=== PATIENT | male | born 1965 | race Caucasian/White ===

== ENCOUNTER 2017-02-27 14:41 | Emergency (ER) | payer MEDICAID, OTHER ==
--- NOTE | 2017-02-27 15:01 | Emergency Department Record ---
History of Present Illness - General Chief complaint: Extremity Problem Stated complaint: L FOOT SWOLLEN Time Seen by Provider: 02/27/17 14:51 Source: Patient Mode of Arrival: Ambulatory Limitations: No limitations - History of Present Illness Initial comments: 51 yo male presents to ED with a CC of left foot pain and swelling to the MCP joint of the great toe. Patient denies fevers, chills, or recent injury, reports that when he went to bed last night the foot was fine. Patient reports pain with walking and pressure to the MCP joint. Patient reports history of HTN , and is seen at [facility] in [place]. MD Complaint: Joint pain Onset/Timin -: Days(s) Location: Left, Foot History of Same: No Severity scale (1-10): 8 Quality: Sharp, Stabbing Consistency: Constant Improves with: Other Worsens with: Palpation, Walking, Weight bearing Associated Symptoms: Denies other symptoms - Related Data Home Medications Medication Instructions Recorded Confirmed Last Taken Guaifenesin/Codeine Phosphate 15 ml PO BID PRN 11/22/15 02/27/17 02/27/17 [Guaifenesin AC Cough Syrup] Hydrochlorothiazide [Hctz 25Mg] 25 mg PO DAILY 11/22/15 02/27/17 02/27/17 Lisinopril 20 mg PO DAILY 11/22/15 02/27/17 02/27/17 Omeprazole [Prilosec] 20 mg PO DAILY 11/22/15 02/27/17 02/27/17 Previous Rx's Medication Instructions Recorded Hydrocodone/Acetaminophen [Nulato 1 tab PO Q6H PRN #15 tab 02/27/17 5mg/325mg] Indomethacin [Indocin] 50 mg PO TID #15 cap 02/27/17 Allergies Allergy/AdvReac Type Severity Reaction Status Date / Time No Known Drug Allergies Allergy Verified 02/27/17 14:44 Travel Screening - Travel/Exposure Within Last 30 Days Have you traveled within the last 30 days?: No - Travel/Exposure Within Last Year Have you traveled outside the [place] in the last year?: No - Additonal Travel Details Have you been exposed to anyone with a communicable illness?: No - Travel Symptoms Symptom Screening: None Review of Systems Constitutional: Denies: Chills, Fever, Malaise, Night sweats Eyes: Denies: Eye discharge, Eye pain ENT: Denies: Congestion, Ear pain Respiratory: Denies: Cough, Dyspnea Cardiovascular: Denies: Chest pain, Dyspnea on exertion Endocrine: Denies: Fatigue, Heat or cold intolerance Gastrointestinal: Denies: Abdominal pain, Nausea, Vomiting Genitourinary: Denies: Incontinence, Retention Musculoskeletal: Reports: Arthralgia, Gout (?), Joint swelling. Denies: Back pain Skin: Denies: Bruising, Change in color Neurological: Denies: Abnormal gait, Confusion, Headache, Seizure Psychiatric: Denies: Anxiety Hematological/Lymphatic: Denies: Anemia, Blood Clots Past Medical History - SOCIAL HISTORY Smoking Status: Never smoker Alcohol Use: None Drug Use Detail:: Marijuana - RESPIRATORY Hx Respiratory Disorders: Yes Hx COPD: Yes - CARDIOVASCULAR Hx Cardio Disorders: Yes Hx Hypertension: Yes - NEURO Hx Neuro Disorders: No - GI Hx GI Disorders: Yes Hx Diverticulitis: Yes Hx Hiatal Hernia: Yes - Hx Genitourinary Disorders: Yes Hx Kidney Stones: Yes - ENDOCRINE Hx Endocrine Disorders: No - MUSCULOSKELETAL Hx Musculoskeletal Disorders: Yes Hx Arthritis: Yes - PSYCH Hx Psych Problems: Yes Hx Anxiety: Yes Hx Depression: Yes - HEMATOLOGY/ONCOLOGY Hx Hematology/Oncology Disorders: No Family Medical History Any Significant Family History?: Yes Hx Anxiety: Brother/Sister Hx Cancer: Father Hx Dementia: Grandparents Hx Depression: Mother, Brother/Sister Hx Heart Disease: Grandparents Hx Seizures: Brother/Sister Physical Exam - General General Appearance: Alert, Oriented x3, Cooperative, Mild distress Limitations: No limitations - Head Head exam: Atraumatic, Normocephalic, Normal inspection Head exam detail: negative: Abrasion, Contusion, Lowe's sign, General tenderness, Hematoma, Laceration - Eye Eye exam: Normal appearance. negative: Conjunctival injection, Periorbital swelling, Periorbital tenderness, Scleral icterus - ENT Ear exam: negative: Auricular hematoma, Auricular trauma Nasal Exam: negative: Active bleeding, Discharge, Dried blood, Foreign body Mouth exam: negative: Drooling, Laceration, Muffled voice, Tongue elevation - Neck Neck exam: Normal inspection. negative: Meningismus, Tenderness - Respiratory Respiratory exam: Normal lung sounds bilaterally. negative: Rales, Respiratory distress, Rhonchi, Stridor - Cardiovascular Cardiovascular Exam: Regular rate, Normal rhythm, Normal heart sounds Peripheral Pulses: 3+: Dorsalis Pedis (L) - GI/Abdominal GI/Abdominal exam: Soft. negative: Rebound, Rigid, Tenderness - Rectal Rectal exam: Deferred - exam: Deferred - Extremities Extremities exam: Tenderness, Other (TTP and mild erythema over the MCP joint of the great toe left, findings are c/w GOUT.). negative: Calf tenderness, Pedal edema - Back Back exam: Denies: CVA tenderness (R), CVA tenderness (L) - Neurological Neurological exam: Alert, Oriented X3. negative: Motor sensory deficit - Psychiatric Psychiatric exam: Normal affect, Normal mood - Skin Skin exam: Normal color. negative: Abrasion Type of lesion: negative: abrasion Course Vital Signs 02/27/17 14:48 Temperature 98.4 F Pulse Rate 86 Respiratory 16 Rate Blood Pressure 141/93 Pulse Ox 97 - Reevaluation(s) Reevaluation #1: 02/27/17 15:03 On examination, patient's history and physical examination are c/w GOUT. Patient denies tramu, is not diabetic, and denies fevers, chills, ore recent illness. Cellulitis appears less likely. X-rays as unlikely to be of benefit in the absence of trauma, and labs are unlikely to be of benefit as Uric Acid levels are frequently normal. Patient appears stable for discharge with follow- up next week. Disposition Disposition: Discharge Clinical Impression: Gout of left foot Qualifiers: Gout etiology: unspecified cause Chronicity: acute Qualified Code(s): M10.9 - Gout, unspecified Disposition: Home, Self-Care Condition: (2) Stable Instructions: Acute Gouty Arthritis (ED) Additional Instructions: Return to ED if your symptoms worsen or if you have any concerns. Nulato and Indomethacin as directed. Follow-up with your family doctor next week for further evaluation. Prescriptions: Indomethacin [Indocin] 50 mg PO TID #15 cap Hydrocodone/Acetaminophen [Nul[place] 5mg/325mg] 1 tab PO Q6H PRN #15 tab PRN Reason: Pain - General Forms: Patient Portal Access Time of Disposition: 15:07
== END 2017-02-27 15:14 | disposition home or self-care (01) ==
LOC: ER 14:41
DX: M10.9 Gout, unspecified (principal); M25.572 Pain in left ankle and joints of left foot; I10 Essential (primary) hypertension
CPT/HCPCS: 99282